=== PATIENT | male | born 1970 | race Asian ===

== ENCOUNTER 2017-02-09 08:55 | Emergency (ER) | payer SELFPAY ==
[~2017-02-09] VITALS: Ht 167.6 cm; Wt 81.8 kg
[2017-02-09] MEDS ORDERED: CloNIDine HCL 0.1 MG TABLET PO ONE (11:15)
[2017-02-09 12:27] VITALS: BP 161/88
== END 2017-02-09 12:31 | disposition home or self-care (01) ==
LOC: EMS 08:57
DX: I10 Essential (primary) hypertension (principal); F17.210 Nicotine dependence, cigarettes, uncomplicated; F12.90 Cannabis use, unspecified, uncomplicated
CPT/HCPCS: 93005; 99285; 99406